=== PATIENT | female | born 1990 | race Caucasian/White ===

== ENCOUNTER 2023-06-24 04:14 | Day surgery (SDC) | payer OTHER ==
[2023-06-22 16:11] VITALS: BMI 28.0
[2023-06-24] MEDS ORDERED: PROPOFOL 40 ML ONE (13:14)
[2023-06-24] MEDS ORDERED: ONDANSETRON 4 MG/2 ML VIAL ONE (13:15)
[2023-06-24] MEDS ORDERED: LIDOCAINE HCL/PF 2% SDV 5ML VIAL ONE (13:15)
[2023-06-24] MEDS ORDERED: SUCCINYLCHOLINE CHLORIDE 200 MG/10 ML SYRINGE ONE (13:15)
[2023-06-24] MEDS ORDERED: DEXAMETHASONE SOD PHOSPHATE 4 MG/1 ML VIAL ONE (13:15)
[2023-06-24] MEDS ORDERED: KETOROLAC TROMETHAMINE 30 MG/1 ML VIAL ONE (13:17)
[2023-06-24] MEDS ORDERED: MIDAZOLAM HCL 2 MG/2 ML SINGLE DOSE VIAL ONE (13:26)
[2023-06-24] MEDS ORDERED: ONDANSETRON 4 MG/2 ML VIAL IVPUSH PRN ×2 (14:15→14:33)
[2023-06-24] MEDS ORDERED: oxyCODONE HCL 5 MG TABLET PO PRN ×2 (14:15→14:33)
[2023-06-24] MEDS ORDERED: LACTATED RINGERS SOLUTION 1,000 ML IV SCH (14:15)
[2023-06-24] MEDS ORDERED: IBUPROFEN 600 MG TABLET (FP) PO PRN (14:33)
[2023-06-24] MEDS ORDERED: IBUPROFEN 800 MG/8 ML IJ IVPB PRN (14:33)
[2023-06-24] MEDS ORDERED: ELECTROLYTE-148 SOLN 1,000 ML IV SCH (14:45)
[2023-06-24 15:53] VITALS: RESP 18
[2023-06-24 16:36] VITALS: BP 110/70; PULSE 63; TEMP 97.1
== END 2023-06-24 17:12 | disposition home or self-care (01) ==
LOC: JASU-SURG 04:14
PROVIDERS: ATTEND Obstetrics & Gynecology
PROC: 0UB98ZZ Excision of Uterus, Via Natural or Artificial Opening Endoscopic (ICD-10-PCS; principal; 2023-06-24 14:00)
DX: N93.9 Abnormal uterine and vaginal bleeding, unspecified (principal); D25.0 Submucous leiomyoma of uterus; N84.0 Polyp of corpus uteri
CPT/HCPCS: 88305-TC; 94760

== ENCOUNTER 2024-06-12 04:53 | Emergency (ER) | payer OTHER ==
[2024-06-12 05:12] VITALS: BP 133/90; PULSE 72; RESP 16; TEMP 98.1; BMI 24.6
[2024-06-12] MEDS ORDERED: ONDANSETRON *ODT* 4 MG TABLET ONE (05:41)
[2024-06-12] MEDS: ONDANSETRON *ODT* 4 MG TABLET SL ONE (05:58)
[2024-06-12] MEDS ORDERED: ACETAMINOPHEN INJECTION 100 ML IVPB ONE (06:24)
[2024-06-12] MEDS: ACETAMINOPHEN 1000 MG/100 ML BAG IVPB ONE (06:30)
[2024-06-12 07:11] LABS: BASO % 0.4 % (0-2.0); EOS % 2.5 % (0-4.5); HEMOGLOBIN 13.4 GM/dL (10.7-15.3); LYMPH % 33.7 % (8-40); MCH 29.4 pg (25.7-33.7); MCHC 33.5 g/dl (32.0-36.0); MEAN CELL VOLUME 87.7 fl (80-96); MEAN PLT VOLUME 7.7 fl (7.5-11.1); MONO % 7.6 % (3.8-10.2); NEUT % 55.8 % (42.8-82.8); PLATELET COUNT 358 10^3/uL (134-434); RBC 4.56 M/mm3 (3.60-5.2); WHITE BLOOD COUNT 7.1 K/mm3 (4.0-10.0)
[2024-06-12 07:28] LABS: POTASSIUM 3.9 mmol/L (3.5-5.1)
[2024-06-12 07:29] LABS: CALCIUM 9.3 mg/dL (8.5-10.1)
[2024-06-12 07:30] LABS: BLOOD UREA NITROGEN 16.5 mg/dL (7-18); MAGNESIUM 2.2 mg/dL (1.8-2.4)
[2024-06-12 07:35] LABS: CREATININE 0.7 mg/dL (0.55-1.3)
[2024-06-12 07:36] LABS: BILIRUBIN,TOTAL 0.4 mg/dL (0.2-1); TOT PROT 7.3 g/dl (6.4-8.2)
[2024-06-12 08:17] LABS: EPI CELLS 14 /uL (0-25.1); HYALINE CASTS 0 /uL (0-3.1); PH,URINE 6.5 (5.0-8.0); URINE APPEARANCE CLEAR; URINE BACTERIA 545 /uL (0-1359); URINE BILIRUBIN NEGATIVE (NEGATIVE); URINE COLOR YELLOW; URINE GLUCOSE (UA) NEGATIVE (NEGATIVE); URINE KETONE NEGATIVE (NEGATIVE); URINE LEUK ESTERASE TRACE (NEGATIVE); URINE NITRITE NEGATIVE (NEGATIVE); URINE PROTEIN NEGATIVE (NEGATIVE); URINE RBC 27 /uL (0-23.9); URINE UROBILINOGEN 0.2 mg/dL (0.2-1.0); URINE WBC 30 /uL (0-25.8)
[2024-06-12 08:43] LABS: INR 1.04 (0.83-1.09); PROTHROMBIN TIME (PATIENT) 11.7 SEC (9.7-13.0)
[2024-06-12 08:45] LABS: ACTIVATED PTT 46.3 SECONDS (25.2-36.5)
== END 2024-06-12 09:14 | disposition home or self-care (01) ==
LOC: JER 04:53
PROC: 3E033NZ Introduction of Analgesics, Hypnotics, Sedatives into Peripheral Vein, Percutaneous Approach (ICD-10-PCS; principal; 2024-06-12)
DX: R06.02 Shortness of breath (principal); R11.0 Nausea; R42 Dizziness and giddiness; R30.0 Dysuria; R07.89 Other chest pain; Z20.822 Contact with and (suspected) exposure to COVID-19
CPT/HCPCS: 0241U-QW; 36415; 71046-TC-FY; 80053; 81003; 83735; 84484; 84703; 85025; 85379; 85610; 85730; 86850; 86900; 86901; 87086; 87186; 93005; 93010; 99285-25; J0131; Q0162